=== PATIENT | female | born 1945 | race Caucasian/White ===

== ENCOUNTER 2017-07-09 16:19 | Emergency (ER) | payer MEDICARE, OTHER ==
[~2017-07-09] VITALS: Ht 15.2 cm; Wt 100.0 kg
[~2017-07-09 16:19] MED LIST: ASPI-378 PO; ESTR1TAB28 PO; GABA600T PO; HYDR1TAB69 PO; IMI100 PO; INSU100C6 SQ; LOSA100T29 PO; PAM10 PO; PRO20 PO; SOM350 PO; ZOC20 PO
--- NOTE | 2017-07-09 16:35 | ED.REPORT ---
HPI-Trauma Minor / Fall Date of Service Jul 09, 2017 ED Provider: Dr. Dhaval Villa MD The patient is a 72 year old female with a history of hyperlipidemia who presents to the ED via EMS following a syncopal episode that resulted in a GLF and a head trauma just prior to arrival. Patient was reportedly watering her rhododendron tree when lost consciousness and woke up on the ground with no memory of the incident. EMS state that the patient hit her the bridge of her nose on a nearby tree branch and lost consciousness for an unknown period of time. Her vitals were stable en route. Patient currently endorses neck pain, pain over the bridge of her nose and nausea. She denies any recent associated fever, chills, vomiting, diarrhea, SOB, chest pain, numbness or tingling in her extremities. The patient denies any history of syncopal episodes. Last tetanus is unknown. Nursing Notes Stated Complaint: GLF Nursing Notes Reviewed: Yes ([employer], meds not reconciled) Allergies: Coded Allergies: latex (Verified Allergy, Mild, RASH, ITCH, 08/01/11) codeine (Verified Adverse Reaction, Mild, GOES CRAZY, 08/01/11) Uncoded Allergies: SULFA (Allergy, Severe, BREATHING PROBLEM, RASH, 09/10/09) ALL TAPE EXCEPT PAPER (Allergy, Mild, 05/09/05) Latex (Allergy, Mild, RASH, ITCH, 05/09/05) CODEINE (Ingr Allergy) (Allergy, Unknown, Y, 05/09/05) CODEINE,SULFA (Allergy, Unknown, 05/09/05) NKDA (Allergy, Unknown, 05/09/05) Sulfa (Allergy, Unknown, 05/09/05) Codeine (Adverse Reaction, Mild, GOES CRAZY, 05/09/05) Scheduled Aspirin-Expunged Drug, Do Not Renew! (Aspirin-Expunged Drug, Do Not Renew!) 81 Mg Tablet.dr 81 MG PO DAILY Carisoprodol (Carisoprodol) 350 Mg Tablet 350 MG PO QID Estradiol-Expunged Drug, Do Not Renew! (Estrace-Expunged Drug, Do Not Renew!) 1 Mg Tablet 1 MG PO DAILY FLUoxetine-Expunged Drug, Do Not Renew! (FLUoxetine-Expunged Drug, Do Not Renew! ) 20 Mg Capsule 2 TAB PO AM Gabapentin-Expunged Drug, Do Not Renew! (Neurontin-Expunged Drug, Do Not Renew! ) 600 Mg Tablet 600 MG PO TID INSULIN GLARGINE-Expunged Drug, Do Not Renew! (Lantus-Expunged Drug, Do Not Renew!) 100 Unit/1 Ml Cartridge 20 UNIT SQ HS Losartan-Expunged Drug, Do Not Renew! (Losartan-Expunged Drug, Do Not Renew!) 100 Mg Tablet 100 MG PO DAILY Nortriptyline-Expunged Drug, Do Not Renew! (Nortriptyline-Expunged Drug, Do Not Renew!) 10 Mg Capsule 20 MG PO HS Simvastatin-Expunged Drug, Choose New Med! (Simvastatin-Expunged Drug, Choose New Med!) 20 Mg Tablet 20 MG PO HS Scheduled PRN Hydrocod/APAP-Expunged, Do Not Renew! (Hydrocod/APAP 5/500-Expunged, Do Not Renew!) 1 Each Tablet 1-2 EACH PO Q4-6H PRN PRN Sumatriptan-Expunged Drug, Do Not Renew! (Imitrex-Expunged Drug, Do Not Renew!) 100 Mg Tab 100 MG PO PRN General Time Seen by MD: 16:34 Chief Complaint Fall Hx Obtained From: Patient, EMS Arrived By: Ambulance Onset Occurred: Just prior to arrival Symptom Duration: Since onset Location: Neck Quality: Painful Severity: Current: Mild Severity: Maximum: Moderate Associated with: Reports: Loss of consciousness, Nausea, Neck pain, Syncope, Denies: Chest pain, Fever, Numb extremities, Shortness of breath, Vomiting Pertinent Negative: Pt denies other symptoms Recent Healthcare: No recent doctor visit, No recent hospitalization Past Medical History Past Medical History Hyperlipidemia Past Surgical History Recent breast reduction surgery Family History Non-contributory Smoking History Unknown if Ever Smoker Social History Other Social History: Lives alone, Local resident Ambulatory Status Independent Review of Systems + pain over nose Constitutional: Denies: Chills, Fever Respiratory: Denies: Shortness of breath Musculoskeletal: Reports: Neck pain Neurologic: Reports: Change LOC, Syncope, Denies: Numbness Complete sys rev & neg: except as marked. Cardiovascular: Denies: Chest pain GI: Reports: Nausea, Denies: Vomiting Physical Exam Initial Vital Signs Vital Signs (First) Date Time Temp Pulse Resp B/P Pulse Ox O2 Delivery O2 Flow Rate FiO2 8/25/17 16:41 83 20 145/52 97 Room Air 07/09/17 16:48 36.2 Initial VS: Reviewed Extremities: Vascular intact, Neuro intact, No swelling, No tenderness Skin: Warm, Dry, No cyanosis Neurologic: Alert, Oriented, Nonfocal Psychiatric: Mood/affect normal, Behavior normal, Normal thought content General/Constitutional: Awake, Alert, No acute distress Neck: Atraumatic, Supple Trauma - Neck Specific: Positive: Immobilized - C Collar NECK: Patient reports pain in her neck Head / Eyes: Atraumatic, Normocephalic, PERRL ENT: Atraumatic, Airway patent, Mucous membranes moist Trauma - General: Positive: Abrasion (Over the bridge of her nose ) Respiratory / Chest: Atraumatic, Breath sounds NL, Breath sounds = bilat, No respiratory distress CHEST: Tenderness and mild ecchymosis present over the bilateral breasts secondary to recent breast reduction surgery (prior to incident) Cardiovascular: Heart rate NL, Regular rhythm, Heart sounds NL Abdomen: Atraumatic, Soft, Non-tender Interpretation & Diagnostics Lab Results Interpretation Result Diagram: 07/09/17 1610 07/09/17 1610 Test 07/09/17 16:10 White Blood Count 8.8th/mm3 (3.8-10.1) Red Blood Count 4.26mil/mm3 (3.90-5.20) Hemoglobin 13.2g/dL (12.0-15.6) Hematocrit 38.7% (35.0-46.0) Mean Corpuscular Volume 90.8fL (81-100) Mean Corpuscular Hemoglobin 31.0pg (27.0-35.0) Mean Corpuscular Hemoglobin Concent 34.1% (32.0-37.0) Red Cell Distribution Width 13.0% (12.3-15.4) Platelet Count 314bil/L (150-400) Neutrophils (%) (Auto) 54.1% (40-74) Lymphocytes (%) (Auto) 34.7% (14-46) Monocytes (%) (Auto) 8.2% (4-12) Eosinophils (%) (Auto) 2.2% (0-5) Basophils (%) (Auto) 0.6% (0-3) Prothrombin Time 9.8sec (8.1-12.5) Prothromb Time International Ratio 0.92ratio Sodium Level 136mEq/L (134-144) Potassium Level 4.0mEq/L (3.5-5.2) Chloride Level 98mEq/L (97-108) Carbon Dioxide Level 20mmol/L (18-29) Blood Urea Nitrogen 13mg/dL (8-27) Creatinine 0.86mg/dL (0.57-1.00) Estimat Glomerular Filtration Rate 92mL/min (>59) Glucose Level 195mg/dL (60-99) Calcium Level 9.4mg/dL (8.5-10.1) Total Bilirubin 0.6mg/dL (0.0-1.2) Aspartate Amino Transf (AST/SGOT) 23U/L (0-50) Alanine Aminotransferase (ALT/SGPT) 20U/L (0-32) Alkaline Phosphatase 66U/L (25-165) Troponin T < 0.010ug/L (0.0-0.011) Total Protein 7.2g/dL (6.4-8.4) Albumin 4.3g/dL (3.4-5.0) ECG Interpretation ECG Interpretation: Normal sinus rhythm Rate 76 bpm No abnormalities No arrhythmias Time: 17:23 Interpreted by: ED physician CT Head Interpretation IMPRESSION: There is no acute intracranial abnormality. No traumatic abnormality is found in the visualized portion of facial bones or calvarium. Dictated by: Alfredo Stephenson M.D. on 07/09/2017 at 18:06 Study: Head CT no contrast Interpretation / Wet Read by: Interpret - Radiologist CT C-Spine Interpretation IMPRESSION: There are no fractures in the cervical spine. Degenerative changes are present in facet joints and disc spaces. Dictated by: Alfredo Stephenson M.D. on 07/09/2017 at 18:08 Study type: CT no contrast Interpretation / Wet Read by: Interpret - Radiologist Re-Eval/Medical Decision Med Decision/Clinical Course This is a pleasant 72-year-old, brought by EMS after a possible syncopal episode. Patient without was working on a [employer], bent over and woke up underneath that the [employer] with an abrasion to her nose and some trace neck discomfort. She reports she had no symptoms prior to the event, no chest pain, shortness of breath and been feeling well today. When she woke up she had no new complaints except as above. She reports she feels well now. She has no prior history of syncope,'s not on any quite once. She is not recall her last tetanus. Exam she is an abrasion to her nose, but is awake well appearing with normal vitals. She has mild cervical tenderness, the respiratory physical exam is normal. EKG is normal. Blood work is normal. CT of the brain and C-spine is negative. Orthostatics were performed and while she was orthostatic for EMS prior to arrival, she seems gentle fluids while undergoing her workup, and on repeat orthostatics in the emergency room were normal-and the patient's ambulating and feels well. She received a tetanus update. She had some nausea following the ambulance transport, received Zofran with resolution. All in all I wondered about a vasovagal episode or bending over-she has had no cardiac dysrhythmias, labs are normal with no findings of anemia or GI bleed, no markers of infection or severe dehydration. I am not finding any indications of pulmonary embolus. She is not on any new medications. Symptoms have resolved. I think overall this presentation is low risk such that admission and cardiac monitoring are not indicated. Patient is comfortable with this and is being discharged in good condition. Source of Hx: Old records, EMS Re-Evaluation/Progress #1: Time of Eval: 18:00 Patient Status: Condition improved, Pain improved Re-Evaluation/Progress Note: C-collar is removed following C-spine clearence. Road test is assigned following reassuring results. Re-Evaluation/Progress #2: Time of Eval: 18:14 Patient Status: Condition improved Re-Evaluation/Progress Note: Patient passes the road test. All questions about the intended treatment plan are addressed. The patient understands and agrees with the current plan. She is given strict return precautions and is agreeable to discharge at this time. Counseled Regarding: Diagnosis, Lab results, Need for follow-up, When/why to return to ED Discharge & Departure Impression: Primary Impression: Fall from ground level Additional Impressions: Head injury Encounter type: initial encounter Qualified Code: S09.90XA - Unspecified injury of head, initial encounter Syncope Syncope type: vasovagal syncope Qualified Code: R55 - Syncope and collapse Nasal abrasion Encounter type: initial encounter Qualified Code: S00.31XA - Abrasion of nose, initial encounter Disposition: Home Discharge Condition All VS Reviewed: Yes Condition: Improved Patient Instructions: Fall Prevention for Older Adults (ED), Head Injury (ED) Referrals: Bob Green MD (PCP) AUDREY THAYER MD (Family) Scribe Attestation Portions of this note were transcribed by Donell Ontiveros. I, Dr. Villa, personally performed the history, physical exam and medical decision-making; I reviewed and confirmed the accuracy of the information in the transcribed note. Signed by: Donell Ontiveros, 07/09/17. copies to: AUDREY THAYER MD; Bob Green MD, Matthew F MD Jul 09, 2017 16:35 DONELL ONTIVEROS Jul 09, 2017 16:42
[2017-07-09 16:41] VITALS: BP 145/52; PULSE 83; RESP 20; O2SAT 97
[2017-07-09 16:48] VITALS: BP 145/52; PULSE 83; RESP 20; O2SAT 97
[2017-07-09 17:06] LABS: BASOPHILS % (AUTO) 0.6 % (0-3); EOSINOPHILS % (AUTO) 2.2 % (0-5); MONOCYTES % (AUTO) 8.2 % (4-12); Mean Corpuscular Volume 90.8 fL (81-100); NEUTROPHILS % (AUTO) 54.1 % (40-74); Platelet Count 314 bil/L (150-400)
[2017-07-09 17:20] LABS: INR 0.92 ratio
[2017-07-09 17:27] LABS: TROPONIN T < 0.010 ug/L (0.0-0.011)
[2017-07-09] MEDS ORDERED: TdaP Vaccine 0.5 mL Inj IM ONE (17:35)
[2017-07-09] MEDS ORDERED: Ondansetron 2 mg/mL 2 mL Inj IVPUSH ONE (17:35)
--- NOTE | 2017-07-09 18:10 | DRSVH ---
PROCEDURE: CT BRAIN WITHOUT CONTRAST ([id number]) INDICATIONS: trauma TECHNIQUE: Noncontrast 4.5 mm thick angled axial sections acquired from the foramen magnum to the vertex, with c oronal reformats. COMPARISON: None. FINDINGS: Image quality: Excellent. CSF spaces: Basal cisterns are patent. No extra-axial fluid collections. The ventricles are symmet obey in size and shape. Brain: No intracranial bleeds or masses. There is cerebral volume loss for age, with resultant vent ricular and sulcal prominence. There are periventricular and deep white matter chronic small vessel ischemic changes. There is intracranial internal carotid artery atherosclerosis. Skull and face: Calvarium and visualized facial bones appear intact, without suspicious lesions. Sinuses: Visualized sinuses and mastoids are clear. IMPRESSION: There is no acute intracranial abnormality. No traumatic abnormality is found in the visualized portion of facial bones or calvarium. Dictated by: Alfredo Stephenson M.D. on 07/09/2017 at 18:06 Approved by: Alfredo Stephenson M.D. on 07/09/2017 at 18:08
--- NOTE | 2017-07-09 18:15 | DRSVH ---
PROCEDURE: CT CERVICAL SPINE WITHOUT CONTRAST ([id number]) INDICATIONS: trauma TECHNIQUE: Noncontrast 3 mm thick sections acquired from the skull base to the T4 level. Sagittal and coronal r eformats were then constructed. For radiation dose reduction, the following was used: automated exp osure control, adjustment of mA and/or kV according to patient size. COMPARISON: None. FINDINGS: Image quality: Good Bones: No fractures or dislocations. Visualized superior ribs are intact. Degenerative changes are present at the atlantodental interval in several mid to lower cervical disc spaces, C4-5, C5-6 and C 6-7. Soft tissues: Prevertebral soft tissues are normal in thickness. No paravertebral hematomas. No ap ical pneumothoraces. IMPRESSION: There are no fractures in the cervical spine. Degenerative changes are present in facet j oints and disc spaces. Dictated by: Alfredo Stephenson M.D. on 07/09/2017 at 18:08 Approved by: Alfredo Stephenson M.D. on 07/09/2017 at 18:13
[2017-07-09 19:22] VITALS: BP 134/49; PULSE 74; RESP 16; O2SAT 98
== END 2017-07-09 19:23 | disposition home or self-care (01) ==
LOC: SED 16:19 → EDBD 16:19 → EDUNIT# 16:19 → SED 19:23
DX: R55 Syncope and collapse (principal); S06.9X1A Unspecified intracranial injury with loss of consciousness of 30 minutes or less, initial encounter; S00.31XA Abrasion of nose, initial encounter; M54.2 Cervicalgia; R11.0 Nausea; W18.09XA Striking against other object with subsequent fall, initial encounter; Y93.H2 Activity, gardening and landscaping; Y99.8 Other external cause status; Y92.017 Garden or yard in single-family (private) house as the place of occurrence of the external cause; E78.5 Hyperlipidemia, unspecified; N64.4 Mastodynia; I10 Essential (primary) hypertension; E11.9 Type 2 diabetes mellitus without complications; Z96.652 Presence of left artificial knee joint; Z87.891 Personal history of nicotine dependence; Z23 Encounter for immunization; Z98.890 Other specified postprocedural states; Z79.4 Long term (current) use of insulin; Z79.82 Long term (current) use of aspirin; Z88.5 Allergy status to narcotic agent; Z88.2 Allergy status to sulfonamides
CPT/HCPCS: 36415; 70450; 72125; 80053; 84484; 85025; 85610; 90471; 90715; 93005; 96374; 99285; J2405